=== PATIENT | male | born 1970 | race Caucasian/White ===

== ENCOUNTER → 2017-11-22 | Outpatient (CLI) | payer BC ==
--- NOTE | 2017-11-22 15:36 | Diagnostic Imaging Report ---
PROCEDURE: CT head without contrast. TECHNIQUE: Multiple contiguous axial images were obtained through the brain without the use of intravenous contrast. INDICATION: Expressive aphasia and headaches. No prior studies are available for comparison. The ventricles and sulci are within normal limits. No sulcal effacement, midline shift or hemorrhage is detected. Cisterns are patent. There is a mucous retention cyst or polyp in the left maxillary sinus. IMPRESSION: No acute intracranial process is detected. Dictated by: Dictated on workstation # [id number]
== END ==
LOC: RAD 15:16
PROVIDERS: ATTEND Internal Medicine
DX: R47.01 Aphasia (principal); R51 Headache
CPT/HCPCS: 70450

== ENCOUNTER 2021-09-15 05:30 | Outpatient (RCR) | payer BC ==
[~2021-09-15] VITALS: Ht 195.6 cm; Wt 113.6 kg
[~2021-09-15 05:30] MED LIST: ATOR20TA66 PO; LOSA50TA63 PO
== END 2021-09-15 09:26 | disposition home or self-care (01) ==
LOC: PREOP 05:30
PROVIDERS: ATTEND Podiatrist Foot & Ankle Surgery
DX: Z01.812 Encounter for preprocedural laboratory examination (principal); M20.12 Hallux valgus (acquired), left foot; Z20.822 Contact with and (suspected) exposure to COVID-19
CPT/HCPCS: 87635

== ENCOUNTER 2021-09-19 08:13 | Day surgery (SDC) | payer BC ==
[2021-09-19] VITALS (11 sets, daily range): BP systolic 105–145; BP diastolic 72–91
[~2021-09-19] VITALS: Ht 195.6 cm; Wt 113.6 kg
[2021-09-19] MEDS: LACTATED RINGERS 1,000 ML IV PRN ×3 (08:30→12:40)
[2021-09-19] MEDS ORDERED: ceFAZolin INJECTION 1,000 MG VIAL IV ONE (08:30)
[2021-09-19] MEDS ORDERED: fentaNYL INJ 100 MCG/2 ML AMP ONE ×2 (08:45→11:18)
[2021-09-19] MEDS ORDERED: MIDAZOLAM 2 MG/2 ML (VERSED) VIAL ONE (08:45)
[2021-09-19] MEDS ORDERED: ONDANSETRON 4 MG/2 ML (SDV) Z0FRAN ONE (08:45)
[2021-09-19] MEDS ORDERED: LIDOCAINE PF 2% 5 ML (XYLOCAINE) VIAL ONE (08:45)
[2021-09-19] MEDS ORDERED: SEVOFLURANE (ULTANE) 15 ML INHAL SOLN ONE ×3 (08:45→13:32)
[2021-09-19] MEDS ORDERED: proPOfol 200 MG/20 ML (DIPRIVAN) VIAL IV ONE (08:45)
[2021-09-19] MEDS ORDERED: LIDOCAINE 1% INJ 20 ML 20 ML VIAL ONE (08:51)
[2021-09-19] MEDS ORDERED: BUPIVACAINE 0.5% 30 ML (SENSORCAINE) VIAL ONE (08:51)
--- NOTE | 2021-09-19 09:15 | Progress Note-Pre Operative ---
Pre-Operative Progress Note H&P Reviewed The H&P was reviewed, patient examined and no changes noted. Date Seen by Provider: Sep 19, 2021 Time Seen by Provider: 09:14 Date H&P Reviewed: Sep 19, 2021 Time H&P Reviewed: 09:14 Pre-Operative Diagnosis: Hallux Valgus, Hypertrophic 2nd metatarsal, 2nd hammertoe, left foot HONG GARVIN DPM Sep 19, 2021 09:15
--- NOTE | 2021-09-19 12:04 | Diagnostic Imaging Report ---
INDICATION: Intraoperative guidance. History of left foot pain and swelling. COMPARISON: 04/04/2021 TOTAL FLUOROSCOPY TIME: 15 seconds TOTAL NUMBER FLUOROSCOPIC IMAGES SAVED: 2 FINDINGS: Multiple intraoperative images intensifier views of the patient's foot were obtained intraoperatively. Right versus left is not denoted. Postsurgical changes of previous fusion of the 1st tarsometatarsal joint space are noted. Prominent hallux valgus deformity is also noted. Interpreting radiologist was not present during the procedure. IMPRESSION:. Fluoroscopic guidance as described above. Dictated by: Dictated on workstation # [id number]
[2021-09-19] MEDS ORDERED: KETOROLAC 30 MG/ML VIAL ONE (13:32)
--- NOTE | 2021-09-19 13:40 | Progress Note-Post Operative ---
Post-Operative Progess Note Surgeon (s)/Hand Ii Tube Bender (s) Surgeon HONG GARVIN DPM Hand Ii Tube Bender: none Pre-Operative Diagnosis Hallux Valgus, Hypertrophic 2nd metatarsal, 2nd hammertoe, left foot Post-Operative Diagnosis Same Procedure & Operative Findings Date of Procedure 09/19/21 Procedure Performed/Findings Lapidus-Manjeet Bunionectomy, 2nd Metatarsal Osteotomy, 2nd Hammertoe reduction, left Anesthesia Type General Estimated Blood Loss Estimated blood loss (mL): 100 Specimens/Packing Specimens Removed None HONG GARVIN DPM Sep 19, 2021 13:40
[2021-09-19] MEDS ORDERED: CEPH500C PO (13:44)
[2021-09-19] MEDS ORDERED: HYDR-3817 PO (13:44)
[2021-09-19] MEDS ORDERED: morphine INJ 10 MG/ML 1ML (SYR OR VIAL) IVP ONE (13:45)
[2021-09-19] MEDS ORDERED: ONDANSETRON 4 MG/2 ML (SDV) Z0FRAN IVP PRN (13:45)
[2021-09-19] MEDS ORDERED: LACTATED RINGERS 1,000 ML IV SCH (13:45)
[2021-09-19] MEDS ORDERED: HYDROcodone/APAP 5 MG/325 MG (LORTAB) TAB PO PRN (13:45)
[2021-09-19] MEDS ORDERED: fentaNYL INJ 100 MCG/2 ML AMP IVP ONE (13:45)
--- NOTE | 2021-09-19 14:23 | Diagnostic Imaging Report ---
INDICATION: Postop foot. COMPARISON: 04/04/2021. FINDINGS: Frontal and lateral radiographic views of the left foot were obtained and show post surgical changes of interval hallux valgus repair. There has been interval fusion of the 1st tarsometatarsal joint space. A metallic pin is also seen extending through the 2nd toe. An orthopedic screw is also seen within the head of the 2nd metatarsal. No unexpected radiopaque foreign bodies are seen. There is mild soft tissue edema and scattered soft tissue emphysema. IMPRESSION: Post surgical changes to the left foot as described above. No unexpected radiopaque foreign bodies. Dictated by: Dictated on workstation # [id number]
--- NOTE | 2021-09-19 14:44 | Anesthesia-General Post-Op ---
General Patient Condition Mental Status/LOC: Same as Preop Cardiovascular: Satisfactory Nausea/Vomiting: Absent Respiratory: Satisfactory Pain: Controlled Complications: Absent Post Op Complications Complications None Follow Up Care/Instructions Patient Instructions None needed. Anesthesia/Patient Condition Patient Condition Patient is doing well, no complaints, stable vital signs, no apparent adverse anesthesia problems. No complications reported per nursing. TRINI LUTHER CRNA Sep 19, 2021 14:44
--- NOTE | 2021-09-19 15:07 | Physical Therapy Ortho Eval ---
PT Orthopedic Evaluation Type of Surgery Hallux Valgus, Hypertrophic 2nd metatarsal, 2nd hammertoe, left foot Prior Level of Function Current Living Status: Spouse Locomotion (Upon Admit): Independent Established Durable Medical Eq: Crutches knee scooter Subjective Subjective Patient agrees to PT. Spouse present Entry Into Home: Level Entry Motor Control Motor Control: Motor Control WNL ROM ROM: WFL, except focal deficit Strength Strength: WFL Transfer SCALE: Activities may be completed with or without assistive devices. 8-Dzwgkhnlyc-aqplxji completes the activity by him/herself with no assistance from a helper. 5-Set-up or Clean-up Assistance-helper sets up or cleans up; patient completes activity. [place] assists only prior to or following the activity. 4-Supervision or Touching Assistance-helper provides verbal cues and/or t ouching/steadying and/or contact guard assistance as patient completes activity. Assistance may be provided throughout the activity or intermittently. 3-Partial/Moderate Assistance-helper does LESS THAN HALF the effort. [place] lifts, holds or supports trunk or limbs, but provides less than half the effort. 2-Substantial/Maximal Assistance-helper does MORE THAN HALF the effort. [place] lifts or holds trunk or limbs and provides more than half the effort. 8-Hlfzktvho-harfsn does ALL the effort. Patient does none of the effort to complete the activity. Or, the assistance of 2 or more helpers is required for the patient to complete the activity. If activity was not attempted, code reason: 7-Patient Refused. 9-Not Applicable-not attempted and the patient did not perform the activity before the current illness, exacerbation or injury. 10-Not Attempted due to Environmental Limitations-(lack of equipment, weather restraints, etc.). 88-Not Attempted due to Medical Conditions or Safety Concerns. Transfers (B, C, W/C) (QC): 4 (CGA for safety) Gait Right Lower Extremity: Right Weight Bearing Status RLE: Full Weight Bearing Left Lower Extremity: Left Weight Bearing Status LLE: Non Weight Bearing Gait (QC): 3 Distance (QC): 4=584-50 ft Distance: 100'x2 Gait Level of Assist: 3 Summary/Comments unsteady initially with PT correct. Improved with time and distance Treatment Rendered Treatment: Gait Train Assessment/Goals Goal Time Frame: 1 Visit Safe Ambulation: Yes (spouse assist ) Plan Treatment Plan: Discharge PT/Family Agrees to Plan: Yes Time Time In: 1445 Time Out: 1502 Total Billed Treatment Time: 17 [facility] Sep 19, 2021 15:07
[2021-09-19] MEDS ORDERED: HYDROcodone/APAP 5 MG/325 MG (LORTAB) TAB ONE (15:24)
--- NOTE | 2021-09-19 19:15 | OPERATIVE REPORT ---
DATE OF SERVICE: 09/19/2021 SURGEON: Roxanna Garvin DPM PREOPERATIVE DIAGNOSES: 1. Hallux abductovalgus metatarsal primus varus, left. 2. Hypertrophic second metatarsal head, left. 3. Hammertoe, left second digit. POSTOPERATIVE DIAGNOSES: 1. Hallux abductovalgus metatarsal primus varus, left. 2. Hypertrophic second metatarsal head, left. 3. Hammertoe, left second digit. PROCEDURE: 1. Modified Lapidus Manjeet procedure, left foot. 2. Second metatarsal osteotomy, left foot. 3. Hammer digit reduction, left second toe. WOUND CLASS: Clean. ANESTHESIA: General. HEMOSTASIS: Pneumatic thigh tourniquet at 250 mmHg. INDICATIONS: This 51-year-old male presents complaining of painful left foot. Conservative therapy has met with unsatisfactory results and the patient is agreeable to surgical intervention after risk and complications were discussed at length. No guarantees were extended to the patient and he is willing to proceed. DESCRIPTION OF PROCEDURE: The patient was brought back to the operating table, placed in secure supine position. Appropriate timeout was performed. The left foot was anesthetized with aseptic technique utilizing 12 mL of 1:1 mixture of 1% Xylocaine, 0.5% Marcaine injected in a ray block to the left second ray. The left foot was then prepped and draped in normal sterile manner. The left foot was then elevated after which the thigh tourniquet was inflated to 250 mmHg. Attention was then directed to the dorsal aspect of the left first metatarsal cuneiform joint where a 5 cm longitudinal linear incision was created. The incision was deepened in the same plane with great care to identify and retract all vital neurovascular structures. The incision was deepened down to the capsule tissue where a longitudinal capsulotomy was performed. The articular cartilage to the base of the first metatarsal was resected perpendicular to the long axis of the metatarsal. Next, the distal aspect of the medial cuneiform, the articular cartilage was removed in perpendicular fashion to the long axis of the second metatarsal. The adjacent bone was fenestrated utilizing a 1.5 drill. This allowed for excellent bleeding into the arthrodesis site. The wound was flushed, after which a K-wire was driven from anterior and inferior to superior posterior, holding the arthrodesis plate in appropriate alignment. Next, utilizing a Tennyson 28 system for Lapidus, a 4-hole standard compression Lapidus plate was utilized for left lower extremity. The 2 proximal locking screws were held in place with 3.5 screws of 26 and 24 mm of length. After this, a compression screw was driven from dorsal distal to plantar proximal across the arthrodesis site, which was 40 mm in length. Excellent bony apposition and fixation was appreciated with C-arm. Next, the compression screw was a nonlocking 2.5 screw of 20 mm of length. Additional 2 more locking screws were placed to the distal aspect of the plate both 3.5 locking screws of 26 and a 22 mm of length. Attention was then directed to the dorsal aspect of the right first metatarsophalangeal joint where an additional 5 cm longitudinal linear incision was created. The incision was deepened down to the capsular tissue where a longitudinal capsulotomy was performed. The medial eminence of the first metatarsal head was resected utilizing a power sagittal saw. The lateral portion of the capsule was released and the conjoint tendon of the adductor hallucis was released. Next, an Manjeet type procedure was performed. This procedure was performed by doing a subperiosteal dissection to the diaphysis of the proximal phalanx, after which a wedge of bone was resected with a power sagittal saw. The lateral cortices was held intact. Terrazzo Polisher hole was created to the dorsal medial aspect of the osteotomy and a 28-gauge monofilament wire was passed through the airplane pilot hole securing the osteotomy in a closed position. Excellent bony apposition and fixation was appreciated at this time. The wound was flushed with copious amounts of normal saline. Closure was performed. A deep closure to initial incisions was with 4-0 Vicryl and superficial closure was performed with 4-0 Vicryl and skin closure was performed with 4-0 Prolene in a horizontal mattress type stitch. Attention was then directed to the left second ray where an incision was created from the metatarsal surgical neck to the distal interphalangeal joint. The incision was deepened in the same plane with great care to identify and retract all vital neurovascular structures. The extensor tendon was reflected after it was incised in a Z-type fashion. This allowed for exposure to the extensor mejia, which was released with a 15 blade. A dorsal capsulorrhaphy was performed to the metatarsophalangeal joint, allowing the proximal phalanx to come down into more rectus alignment. Next, the medial and lateral collateral ligaments were released with a 15 blade. This exposed the hypertrophic head of the second metatarsal, after which a Jill type osteotomy was performed. The power sagittal saw was utilized to create the osteotomy in the same plane as what would be the weightbearing surface for the foot. The capital fragment was translocated proximally and fixated in its corrected position utilizing a 2.0 snap-off screw of 14 mm of length driven from dorsal to plantar. Excellent bony apposition fixation was appreciated at this time. The excess osseous structures were further contoured and smoothed with a rongeur followed by a bur to the dorsal aspect of the second metatarsal head. Attention was then directed to the proximal interphalangeal joint of the left second digit where a capsulorrhaphy was performed. The head of the proximal phalanx was then fashioned into a peg with a power sagittal saw and power bur, a hole was created to the base of the middle phalanx with a power bur for the peg-in-hole type arthrodesis. A 0.054 K-wire was driven down the toe securing the arthrodesis site in a rectus alignment. Excellent bony apposition fixation was appreciated at this time. The excess K-wire was cut and a protective ball placed over the end of the wire. The wound was flushed once again, after which closure was performed in layers. Deep closure was performed with 3-0 Vicryl with the extensor tendon in a more lengthened position. The superficial closure was performed with 4-0 Vicryl and followed by skin closure with 4-0 Prolene in a horizontal mattress type stitch. The patient had a postoperative injection of 20 mL of 1:1 mixture of 1% Xylocaine, 0.5% Marcaine injected in a local infusion to the surgical sites, also 10 mg dexamethasone into the first intermetatarsal space. Postoperative dressing consisted of Betadine soaked Adaptic, sterile 4 x 4, sterile Kerlix all secured with a Coban wrap. The patient tolerated the anesthesia and procedure well, was transported from the operating room to the recovery room with vital signs stable and vascular status was intact to all digits of the left foot. He is to follow up in my office in 10 days' period of time or sooner if necessary. Job ID: [id number] DocumentID: [id number] Dictated Date: 09/19/2021 13:56:11 Compliance Assistant Date: 09/19/2021 19:14:51 Dictated By: ROXANNA GARVIN DPM
== END 2021-09-19 13:45 | disposition home or self-care (01) ==
LOC: SDC 08:13
PROVIDERS: ATTEND Podiatrist Foot & Ankle Surgery
DX: M20.12 Hallux valgus (acquired), left foot (principal); M89.372 Hypertrophy of bone, left ankle and foot; M20.42 Other hammer toe(s) (acquired), left foot; I10 Essential (primary) hypertension; E78.2 Mixed hyperlipidemia; E66.9 Obesity, unspecified; Z68.30 Body mass index [BMI] 30.0-30.9, adult; Z80.0 Family history of malignant neoplasm of digestive organs; Z79.899 Other long term (current) drug therapy
CPT/HCPCS: 28285; 28299; 28308; 73620; 76000; 87081; 97162; C1713 ×8

== ENCOUNTER → 2021-10-18 | Outpatient (CLI) | payer BC ==
[~2021-10-18] MED LIST changes: +CEPH500C PO; +HYDR-3817 PO
--- NOTE | 2021-10-18 10:00 | Diagnostic Imaging Report ---
PROCEDURE: US left lower extremity venous. TECHNIQUE: Multiple real-time grayscale images were obtained over the left lower extremity in various projections. Additional duplex Doppler and color Doppler images were also obtained. INDICATION: DVT. The left lower extremity femoropopliteal deep venous structures were patent and showed normal color flow waveforms and compressibility. The popliteal is patent. Within the calf there is an occlusive clot within the peroneal vein. The remaining major calf veins were patent. IMPRESSION: Venous thrombus isolated to the peroneal vein within the calf. The femoropopliteal system is patent. Ordering physician has been notified by these results prior to this dictation. Dictated by: Dictated on workstation # [id number]
== END ==
LOC: RAD 09:00
PROVIDERS: ATTEND Podiatrist Foot & Ankle Surgery
DX: I82.452 Acute embolism and thrombosis of left peroneal vein (principal)

== ENCOUNTER → 2021-11-28 | Outpatient (RCR) | payer BC | END | disposition home or self-care (01) | PROVIDERS: ATTEND Podiatrist Foot & Ankle Surgery | DX: M25.675 Stiffness of left foot, not elsewhere classified (principal); I10 Essential (primary) hypertension; Z98.890 Other specified postprocedural states; Z86.718 Personal history of other venous thrombosis and embolism; Z79.01 Long term (current) use of anticoagulants ==

== ENCOUNTER → 2021-12-26 | Outpatient (RCR) | payer BC | END | disposition home or self-care (01) | PROVIDERS: ATTEND Podiatrist Foot & Ankle Surgery | DX: M25.675 Stiffness of left foot, not elsewhere classified (principal); I10 Essential (primary) hypertension; Z98.890 Other specified postprocedural states ==

== ENCOUNTER 2022-01-13 13:35 | Outpatient (RCR) | payer BC | END 2022-01-26 | disposition home or self-care (01) | PROVIDERS: ATTEND Podiatrist Foot & Ankle Surgery | DX: M25.675 Stiffness of left foot, not elsewhere classified (principal); I10 Essential (primary) hypertension; Z98.890 Other specified postprocedural states ==

== ENCOUNTER → 2022-05-24 | Outpatient (CLI) | payer BC ==
[~2022-05-24] MED LIST changes: +CATHETER FLUSH 10 ML SYR IV PRN; +HOLD METFORMIN - RECEIVED CONTRAST 20 ML VIAL IV SCH; +IOHEXOL 350 MG/ML 100 ML (OMNIPAQUE 350) VIAL IV ONE; +NS 100 ML (IVPB) BAG IV ONE
[2022-05-24 14:45] LABS: HEMATOCRIT 45 % (40-54); HEMOGLOBIN 15.3 g/dL (13.3-17.7); MEAN CORPUSCULAR HEMOGLOBIN 30 pg (25-34); MEAN CORPUSCULAR HGB CONC 34 g/dL (32-36); MEAN CORPUSCULAR VOLUME 88 fL (80-99); MEAN PLATELET VOLUME 9.7 fL (9.0-12.2); PLATELET COUNT 217 10^3/uL (130-400)
--- NOTE | 2022-05-24 14:55 | Diagnostic Imaging Report ---
EXAMINATION: CT abdomen and pelvis with contrast, 05/24/2022. TECHNIQUE: Multiple contiguous axial images were obtained through the abdomen and pelvis after the administration of intravenous contrast. All CT scans use one or more of the following dose optimizing techniques: Automated exposure control, MA and/or KvP adjustment based on patient size and exam type or iterative reconstruction. INDICATION: Severe right-sided abdominal pain since Sunday night. Question appendicitis. COMPARISONS: None. FINDINGS: There is linear scar or atelectasis throughout the visualized lung bases. There is hepatic steatosis with the liver otherwise normal in appearance. The spleen, adrenal glands, and pancreas are unremarkable. There are multiple stones throughout a distended appearing gallbladder. There is fat stranding and inflammatory change about the gallbladder with gallbladder wall thickening noted. There is likely pericholecystic fluid. There appears to be a stone either in the gallbladder neck or in the proximal cystic duct. The inflammatory change surrounding the gallbladder also surrounds portions of the duodenal sweep, likely reactive. The loops of bowel appear nonobstructive. There are prominent fluid-filled small bowel loops in the left mid abdomen perhaps due to a reactive ileus. Enteritis not excluded. There is free fluid in the pelvis. The appendix is not visualized, but no focal inflammation is seen about the cecum. There are degenerative changes within the spine. IMPRESSION: 1. Marked inflammatory change about the gallbladder which contains stones with a possible stone in the gallbladder neck or cystic duct. Findings are suspicious for acute cholecystitis. Sonographic characterization would provide better evaluation. 2. Likely reactive ileus versus enteritis. 3. Hepatic steatosis. 4. Likely reactive fluid in the pelvis. Dictated by: Dictated on workstation # [id number]
[2022-05-24 15:06] LABS: ALANINE AMINOTRANSFERASE 26 U/L (0-55); ALBUMIN 4.4 GM/DL (3.2-4.5); ALKALINE PHOSPHATASE 64 U/L (40-136); BILIRUBIN,TOTAL 4.3 MG/DL (0.1-1.0); BUN/CREATININE RATIO 12; CALCIUM 10.2 MG/DL (8.5-10.1); CARBON DIOXIDE 24 MMOL/L (21-32); CHLORIDE 101 MMOL/L (98-107); CREATININE SERUM 1.02 MG/DL (0.60-1.30); GFR ESTIMATED 90; GLUCOSE 125 MG/DL (70-105); POTASSIUM 3.9 MMOL/L (3.6-5.0); SODIUM 135 MMOL/L (135-145); TOTAL PROTEIN 7.2 GM/DL (6.4-8.2)
== END ==
LOC: CARD 14:05
PROVIDERS: ATTEND Nurse Practitioner Family
DX: K76.0 Fatty (change of) liver, not elsewhere classified (principal); K80.20 Calculus of gallbladder without cholecystitis without obstruction
CPT/HCPCS: 36415; 74177; 80053; 84484; 85027; 85379; 93005